=== PATIENT | female | born 1965 | race Caucasian/White ===

== ENCOUNTER 2025-02-04 18:48 | Emergency (ER) | payer OTHER ==
[~2025-02-04] VITALS: Ht 162.6 cm; Wt 96.2 kg
[2025-02-04] MEDS ORDERED: OxyCODONE HCL 5 MG TABLET (ROXICODONE) PO ONE (19:15)
== END 2025-02-04 20:11 | disposition home or self-care (01) ==
LOC: ER 18:48
DX: S80.02XA Contusion of left knee, initial encounter (principal); S50.02XA Contusion of left elbow, initial encounter; W18.39XA Other fall on same level, initial encounter; Y93.89 Activity, other specified; Y92.89 Other specified places as the place of occurrence of the external cause; Y99.9 Unspecified external cause status; M85.862 Other specified disorders of bone density and structure, left lower leg; M85.822 Other specified disorders of bone density and structure, left upper arm; Z88.8 Allergy status to other drugs, medicaments and biological substances; Z91.013 Allergy to seafood